=== PATIENT | female | born 1990 | race Caucasian/White ===

== ENCOUNTER 2017-04-27 18:10 | Emergency (ER) | payer SELFPAY ==
[2017-04-27 18:15] VITALS: BP 152/78; BMI 40.7
--- NOTE | 2017-04-27 18:45 | DR.GENAD ---
HPI - PCP Primary Care Physician: abimbola - HPI Comment HPI Comment: GETTING WORSE.NO FEVER. GLANDS SWOLLEN AND PAINFUL ON THE RIGHT ANTERIOR CERVICAL AREA. HAVING DYSPHAGIA WELL. - Complaint/Symptoms Chief Complaint Doctors Comments: SORE THROAT TIMES 2 DAYS. Chief Complaint:: thinks she has strep throat Self Treatment fo Chief Complaint: pt took tylenol cold last taken this morning - Nurses notes reviewed Nurses Notes Review: Yes - Source History Provided: Patient - Mode of Arrival Mode of Arrival: Ambulatory - Timing Onset of Chief Complaint: 04/25/17 Came on: Suddenly - Duration Duration: Constant Duration: Days - Severity Severity: Moderate PMH - PMH Past Medical History: Yes Past Medical History: Asthma, Hypertension Past Surgical History: No - Family History History of Family Medical Conditions: Yes Family Medical History: Hypertension - Social History Does patient currently use any type of tobacco product: Yes Have you used tobacco products in the last 12 months: Yes Type of Tobacco Use: Cigarettes Does any household member use tobacco: No Alcohol Use: None Do you use any recreational Drugs:: No Lives With: Family Lives Where: Home - infectious screening In the last 2 months have you had wt loss of >10#?: NO Have you had fever, night sweats or hemotysis?: No Have you traveled outside the country in the last 6 months?: No Isolation: Standard ROS - Review of Systems Constitutional: Weakness, Fatigue. negative: Chills, Fever Eyes: No Symptoms Reported. negative: Eye Pain, Discharge ENTM: No Symptoms Reported, Nose Discharge, Nose Congestion, Throat Pain. negative: Ear Pain Respiratoy: Productive Cough. negative: Short of Breath, Wheezing, Hemoptysis Cardiovascular: No Symptoms Reported Gastrointestinal/Abdominal: No Symptoms Reported Genitourinary: No Symptoms Reported Neurological: No Symptoms Reported Musculoskeletal: No Symptoms Reported Integumentary: No Symptoms Reported Hematologic/Lymphatic: Easy Bruising Endocrine: No Symptoms Reported All Other Systems: Reviewed and Negative PE - Vital Signs Vitals: Temperature 98.7 F Pulse Rate 91 Respiratory Rate 16 Blood Pressure 152/78 O2 Sat by Pulse Oximetry 98 - General Limitations: No Limitations General Appearance: Alert - Head Head Exam: Normal Inspection - Eyes Eye exam: Normal Appearance - ENT ENT Exam: Normal External Ear Exam External Ear Exam: Normal External Inspection TM/Canal Exam: Bilateral Normal Nose Exam: Normal Nose Exam Mouth Exam: Normal Inspection - Chest Chest Inspection: Symmetric Chest Wall Rise - Respiratory Respiratory Exam: Normal Lung Sounds Bilat Respiratory Exam: Bilateral Clear to Auscultation - Cardiovascular Cardiovascular Exam: Regular Rate, Normal Rhythm - Abdominal Exam Abdominal Exam: Normal Bowel Sounds, Soft. negative: Tenderness - Extremities Extremities Exam: Normal Inspection - Back Back Exam: Normal Inspection - Neurologic Neurological Exam: Alert, Oriented X3 - Psychiatric Psychiatric Exam: Normal Affect, Normal Mood - Skin Skin Exam: Normal Color MDM - Differential Diagnosis Differential Diagnosis: STREP PHARYNGITIS, CERVICAL ADENITIS, MONO Course - Treatment Treatment: SEE ORDERS. - Education/Counseling Education/Counseling: Patient, Education Educated On: Diagnosis, Needs for Follow Up ROR - Labs Reviewed Laboratory Results Reviewed?: Yes Laboratory: Monoscreen Negative (NEGATIVE) 04/27/17 19:15 Streptococcus Screen Negative (NEGATIVE) 04/27/17 18:42 - Diagnosis Discharge Problem: Sore throat, Cervical adenitis - Discharge Plan Disposition: 01 HOME, SELF-CARE Condition: Stable Prescriptions: Acetaminophen with Codeine [Tylenol/Codeine #3 300-30 mg] 1 tab PO Q4-6H PRN # 15 tab PRN Reason: Pain Amoxicillin [Amoxil 875 mg] 875 mg PO Q12H #20 tab - Follow ups/Referrals Follow ups/Referrals: Sergio Morrison [Primary Care Provider] - 3 days - Instructions Instructions: Sore Throat, [id number], Lymphadenopathy Additional Instructions: RETURN TO ED IF WORSE.
[2017-04-27] MEDS ORDERED: TYLENOL #3 TAB (W/CODEINE) PO ONE ×2 (19:59→20:05)
[2017-04-27] MEDS ORDERED: AMOXIL CAP 500 MG PO ONE ×2 (19:59→20:05)
[2017-04-27 20:00] LABS: MONOTEST NEGATIVE (NEGATIVE)
== END 2017-04-27 20:07 | disposition home or self-care (01) ==
LOC: ER 18:25
DX: J02.9 Acute pharyngitis, unspecified (principal); I88.8 Other nonspecific lymphadenitis
CPT/HCPCS: 86308; 87070; 87880; 99282

== ENCOUNTER 2018-02-21 20:43 | Emergency (ER) | payer SELFPAY ==
[2018-02-21] MEDS ORDERED: ASPIRIN 81 MG CHEWTAB ONE (20:55)
[2018-02-21 20:56] VITALS: BMI 49.8
[2018-02-21] MEDS ORDERED: ASPIRIN 81 MG CHEWTAB PO ONE (20:57)
[2018-02-21] MEDS ORDERED: ASPIRIN PO SCH (21:00)
[2018-02-21] MEDS ORDERED: NITROSTAT SL ONE (21:05)
[2018-02-21] MEDS: NITROSTAT SL PRN ×2 (21:05→21:15)
--- NOTE | 2018-02-21 21:06 | DR.CP ---
HPI - Time Seen Time seen: 21:00 - PCP Primary Care Physician: NFD - Complaint Chief Complaint Doctor Comments: Patient presents to the ED with complaint of sharp left chest lyudmila radiating to neck and left arm,shoulder. Pain 10/10, she admits to being diaphoretic. Denies prior history of chest pain. Chief Complaint:: "I WAS AT MY [place] IN [place] AND MY CHEST STARTED HURTING. STABBING PAINS IN MY LEFT CHEST AND LEFT NECK ,SHOULDER , ARM. I HAVE HAD HEART BURN WHETHER I EAT OR NOT PROBABLY THE LAST 3 MONTHS REALLY BAD. THIS HAS HAPPENED BEFORE." CHEST PAIN O/S 3 HRS AGO. SHORTNESS OF BREATH, WHEN I TAKE A BREATH IT FEELS LIKE SOMETHING IS SITTING ON MY CHEST. - Source History Provided: Patient - Mode of Arrival Mode of Arrival: Ambulatory - Timing Onset of Chief Complaint: 02/21/18 - Location Chest Pain Radiation Location: Left Jaw, Left Arm, Left Shoulder - Associated Signs and Symptoms Associated Signs and Symptoms: Shortness of Breath PMH - PMH Past Medical History: Yes Past Medical History: Asthma, Hypertension Past Surgical History: No - Family History History of Family Medical Conditions: Yes Family Medical History: Hypertension - Social History Type of Tobacco Use: Cigarettes Alcohol Use: None Do you use any recreational Drugs:: No Lives With: Significant Other Lives Where: Home - infectious screening Have you traveled outside the country in the last 6 months?: No Isolation: Standard ROS - Review of Systems Constitutional: Diaphoresis Eyes: No Symptoms Reported ENTM: No Symptoms Reported Respiratoy: No Symptoms Reported Cardiovascular: No Symptoms Reported Gastrointestinal/Abdominal: No Symptoms Reported Genitourinary: No Symptoms Reported Neurological: No Symptoms Reported Musculoskeletal: No Symptoms Reported Integumentary: No Symptoms Reported Hematologic/Lymphatic: No Symptoms Reported Endocrine: No Symptoms Reported Psychiatric: No Symptoms Reported All Other Systems: Reviewed and Negative PE - Vitals Vitals: Temperature 97.8 F Pulse Rate [Apical] 77 Pulse Rate 90 Respiratory Rate 20 Blood Pressure [Left Arm] 130/69 Blood Pressure 138/81 O2 Sat by Pulse Oximetry 99 - General Limitations: No Limitations General Appearance: Alert, In No Apparent Distress - Head Head Exam: Normal Inspection, Atraumatic - Eyes Eye exam: Normal Appearance, PERRL, EOMI - ENT ENT Exam: Normal Exam - Chest Chest Inspection: Normal Inspection, Symmetric Chest Wall Rise - Respiratory Respiratory Exam: Normal Lung Sounds Bilat Respiratory Exam: Bilateral Clear to Auscultation - Cardiovascular Cardiovascular Exam: Regular Rate, Normal Rhythm Pulse: Normal, Radial Edema: Normal - Abdominal Exam Abdominal Exam: Normal Inspection, Normal Bowel Sounds Abdominal Tenderness: negative: RUQ, RLQ, LUQ, LLQ, Epigastrium, Suprapubic, Diffuse, Mild, Moderate, Severe, Other - Extremities Extremities Exam: Normal Inspection, Full ROM - Back Back Exam: Normal Inspection, Full ROM - Neurologic Neurological Exam: Alert, Oriented X3, CN II-XII Intact - Psychiatric Psychiatric Exam: Normal Affect, Normal Mood - Skin Skin Exam: Warm, Dry, Intact Course - Consultation Called: 23:57 (Dr Coronel will f/u in office ) ROR - Labs Reviewed Result Diagrams: 02/21/18 21:00 02/21/18 21:00 Laboratory: WBC 17.1 X10^3/uL (3.6-10.0) H 02/21/18 21:00 RBC 4.69 X10^6/uL (3.5-5.4) 02/21/18 21:00 Hgb 12.4 g/dL (12.0-16.0) 02/21/18 21:00 Hct 36.6 % (36.0-47.0) 02/21/18 21:00 MCV 78.2 fL (80.0-100.0) L 02/21/18 21:00 MCH 26.5 pg (27.0-34.0) L 02/21/18 21:00 MCHC 33.9 g/dL (33.0-35.0) 02/21/18 21:00 RDW 17.7 % (11.6-16.5) H 02/21/18 21:00 Plt Count 305 X10^3/uL (150.0-450.0) 02/21/18 21:00 Plt Count Comment Adequate (ADEQUATE) 02/21/18 21:00 MPV 10.1 fL (7.4-11.0) 02/21/18 21:00 Neut % (Auto) 66.7 % (42.0-75.0) 02/21/18 21:00 Lymph % (Auto) 25.1 % (21.0-51.0) 02/21/18 21:00 [place] % (Auto) 4.9 % (0.0-13.0) 02/21/18 21:00 Eos % (Auto) 1.3 % (0.9-2.9) 02/21/18 21:00 Baso % (Auto) 2.0 % (0.2-1.0) H 02/21/18 21:00 Neut # (Auto) 11.4 x10^3/uL (2.2-4.8) H 02/21/18 21:00 Lymph # (Auto) 4.3 X10^3/uL (1.3-2.9) H 02/21/18 21:00 [place] # (Auto) 0.8 x10^3/uL (0.3-0.8) 02/21/18 21:00 Eos # (Auto) 0.2 x10^3/uL (0.0-0.2) 02/21/18 21:00 Baso # (Auto) 0.3 X10^3/uL (0.0-0.1) H 02/21/18 21:00 Absolute Nucleated RBC 0.0 /100WBC 02/21/18 21:00 Total Counted 100 02/21/18 21:00 Neutrophils % (Manual) 70 % (39-76) 02/21/18 21:00 Lymphocytes % (Manual) 28 % (13-43) 02/21/18 21:00 Monocytes % (Manual) 2 % (4-9) L 02/21/18 21:00 Plt Morphology Comment Normal (NORMAL) 02/21/18 21:00 RBC Morphology Normal (NORMAL) 02/21/18 21:00 INR Target Range - 02/21/18 21:00 INR 1.03 (0.8-1.3) 02/21/18 21:00 APTT 36.1 SECONDS (22.9-36.5) 02/21/18 21:00 PTT Comment - 02/21/18 21:00 Sodium 139 mmol/L (136-145) 02/21/18 21:00 Corrected Sodium TNP 02/21/18 21:00 Potassium 4.1 mmol/L (3.5-5.1) 02/21/18 21:00 Chloride 106 mmol/L (98-107) 02/21/18 21:00 Carbon Dioxide 23.5 mmol/L (21-32) 02/21/18 21:00 BUN 10 mg/dL (7-18) 02/21/18 21:00 Creatinine 0.66 mg/dL (0.55-1.02) 02/21/18 21:00 Est GFR (MDRD) Af Amer > 60 (>60) 02/21/18 21:00 Est GFR (MDRD) Non-Af > 60 (>60) 02/21/18 21:00 Glucose 99 mg/dL (65-99) 02/21/18 21:00 Calcium 7.5 mg/dL (8.5-10.1) L 02/21/18 21:00 Corrected Calcium 8.1 mg/dL (8.5-10.1) L 02/21/18 21:00 Magnesium 1.9 mg/dL (1.7-2.9) 02/21/18 21:00 Total Bilirubin 0.20 mg/dL (0.2-1.0) 02/21/18 21:00 AST 17 Units/L (15-37) 02/21/18 21:00 ALT 22 Units/L (12-78) 02/21/18 21:00 Alkaline Phosphatase 102 Units/L (46-116) 02/21/18 21:00 Creatine Kinase 117 Units/L (26-192) 02/21/18 21:00 CK-MB (CK-2) < 1.0 ng/mL (0-4.0) 02/21/18 21:00 CK/CKMB % Calc 0.9 % (<4) 02/21/18 21:00 Troponin I < 0.02 ng/mL (0-1.5) 02/21/18 21:00 Total Protein 7.4 g/dL (6.4-8.2) 02/21/18 21:00 Albumin 3.3 g/dL (3.4-5.0) L 02/21/18 21:00 Globulin 4.1 g/dL (2.5-4.5) 02/21/18 21:00 Albumin/Globulin Ratio 0.8 Ratio (1.1-2.1) L 02/21/18 21:00 Specimen Type Clean catch urine 02/21/18:52 Urine Color Yellow (YELLOW) 02/21/18 21:52 Urine Appearance Clear (CLEAR) 05/27/18 21:52 Urine pH 7.0 (5.0 - 8.0) 02/21/18 21:52 Ur Specific [place] 1.015 (1.000-1.030) 02/21/18 21:52 Urine Protein 1+ (NEGATIVE) 02/21/18 21:52 Urine Glucose (UA) Negative (NEGATIVE) 02/21/18 21:52 Urine Ketones 1+ (NEGATIVE) 02/21/18 21:52 Urine Occult Blood 1+ (NEGATIVE) 02/21/18 21:52 Urine Nitrite Negative (NEGATIVE) 02/21/18 21:52 Urine Bilirubin Negative (NEGATIVE) 02/21/18 21:52 Urine Urobilinogen 1+ (NORMAL) 02/21/18 21:52 Ur Leukocyte Esterase 1+ (NEGATIVE) 02/21/18 21:52 Urine RBC 3-5 /HPF (NONE SEEN) 02/21/18 21:52 Urine WBC 0-2 /HPF (NONE SEEN) 02/21/18 21:52 Ur Squamous Epith Cells Few /HPF (NEGATIVE) 02/21/18 21:52 Urine Bacteria Negative /HPF (NEGATIVE) 02/21/18 21:52 Ur Culture Indicated? No/not indicated 02/21/18 21:52 Urine Opiates Screen Negative (NEG=<300) 02/21/18 21:52 Urine Methadone Screen Negative (NEG=<300) 02/21/18 21:52 Ur Barbiturates Screen Negative (NEG=<200) 02/21/18 21:52 Ur Phencyclidine Scrn Negative (NEG=<25) 02/21/18 21:52 Ur Amphetamines Screen Negative (NEG=<1000) 02/21/18 21:52 U Benzodiazepines Scrn Negative (NEG=<200) 02/21/18 21:52 Urine Cocaine Screen Negative (NEG=<300) 02/21/18 21:52 U Marijuana (THC) Screen Negative (NEG=<50) 02/21/18 21:52 H. pylori IgG Antibody Positive (NEGATIVE) A 02/21/18 21:00 - XRAY XRAY Interpreted by: Radiologist (Chest: no acute chest process) - Diagnosis Discharge Problem: Helicobacter pylori gastritis Chest pain Qualifiers: Chest pain type: unspecified Qualified Code(s): R07.9 - Chest pain, unspecified - Discharge Plan Condition: Stable - Follow ups/Referrals Follow ups/Referrals: NFD,None [Primary Care Provider] - 3 days - Instructions
[2018-02-21 21:12] LABS: BASOPHILS # (AUTO) 0.3 X10^3/uL (0.0-0.1); EOSINOPHILS # (AUTO) 0.2 x10^3/uL (0.0-0.2); EOSINOPHILS % (AUTO) 1.3 % (0.9-2.9); HEMATOCRIT 36.6 % (36.0-47.0); HEMOGLOBIN 12.4 g/dL (12.0-16.0); LYMPHOCYTES # (AUTO) 4.3 X10^3/uL (1.3-2.9); LYMPHOCYTES % (AUTO) 25.1 % (21.0-51.0); MEAN CORPUSCULAR HEMOGLOBIN 26.5 pg (27.0-34.0); MEAN CORPUSCULAR HGB CONC 33.9 g/dL (33.0-35.0); MEAN CORPUSCULAR VOLUME 78.2 fL (80.0-100.0); MEAN PLATELET VOLUME 10.1 fL (7.4-11.0); MONOCYTES # (AUTO) 0.8 x10^3/uL (0.3-0.8); MONOCYTES % (AUTO) 4.9 % (0.0-13.0); NEUTROPHILS # (AUTO) 11.4 x10^3/uL (2.2-4.8); NEUTROPHILS % (AUTO) 66.7 % (42.0-75.0); PLATELET COUNT 305 X10^3/uL (150.0-450.0); RED BLOOD COUNT 4.69 X10^6/uL (3.5-5.4); RED CELL DISTRIBUTION WIDTH 17.7 % (11.6-16.5); WHITE BLOOD COUNT 17.1 X10^3/uL (3.6-10.0)
[2018-02-21 21:24] LABS: BLOOD UREA NITROGEN 10 mg/dL (7-18); CALCIUM 7.5 mg/dL (8.5-10.1); CARBON DIOXIDE 23.5 mmol/L (21-32); CHLORIDE 106 mmol/L (98-107); CREATININE 0.66 mg/dL (0.55-1.02); SODIUM 139 mmol/L (136-145); TROPONIN I < 0.02 ng/mL (0-1.5); eGFR BLACK RACES > 60 (>60); eGFR NON BLACK RACES > 60 (>60)
--- NOTE | 2018-02-21 21:24 | RAD ---
Chest, AP portable Indication: Chest pain Comparison: None Findings: Cardiac silhouette is unremarkable. The lungs are grossly clear without focal infiltrates o r pleural effusion. Impression: No acute chest process. Reported By:
[2018-02-21 21:28] LABS: ALANINE AMINOTRANSFERASE 22 Units/L (12-78); ALBUMIN 3.3 g/dL (3.4-5.0); ALKALINE PHOSPHATASE 102 Units/L (46-116); COR CA(FOR HYPOALB) 8.1 mg/dL (8.5-10.1); CREATINE KINASE 117 Units/L (26-192); CREATINE KINASE MB < 1.0 ng/mL (0-4.0); MAGNESIUM 1.9 mg/dL (1.7-2.9); TOTAL PROTEIN 7.4 g/dL (6.4-8.2)
[2018-02-21 21:29] LABS: PLATELET MORPHOLOGY COMMENT NORMAL (NORMAL)
[2018-02-21 21:30] LABS: ASPARTATE AMINO TRANSFERASE 17 Units/L (15-37)
[2018-02-21 21:32] LABS: CKMB % 0.9 % (<4)
[2018-02-21 22:21] LABS: BILIRUBIN,URINE NEGATIVE (NEGATIVE); BLOOD/HEMOGLOBIN,URINE 1+ (NEGATIVE); GLUCOSE, URINE NEGATIVE (NEGATIVE); KETONES,URINE 1+ (NEGATIVE); LEUKOCYTE ESTERASE ,URINE 1+ (NEGATIVE); NITRITES,URINE NEGATIVE (NEGATIVE); PROTEIN,URINE 1+ (NEGATIVE); UROBILINOGEN,URINE 1+ (NORMAL)
[2018-02-21 22:28] LABS: APPEARANCE,URINE CLEAR (CLEAR); COLOR,URINE YELLOW (YELLOW)
[2018-02-21 22:29] LABS: BACTERIA,URINE NEGATIVE /HPF (NEGATIVE); SQUAMOUS EPITHELIAL CELL,UR FEW /HPF (NEGATIVE)
[2018-02-22] MEDS ORDERED: TORADOL 30 MG VIAL IVP ONE
[2018-02-22] MEDS ORDERED: TORADOL 30 MG VIAL ONE (00:01)
[2018-02-22 00:17] VITALS: BP 147/79
== END 2018-02-22 00:10 | disposition home or self-care (01) ==
LOC: ER 20:43
DX: R07.89 Other chest pain (principal); B96.81 Helicobacter pylori [H. pylori] as the cause of diseases classified elsewhere
CPT/HCPCS: 36415; 71045; 80053; 80307; 81001; 82550; 82553; 83735; 84484; 85025; 85610; 85730; 86677; 93005; 93010; 96365; 96374; 99283; A4222; G0434; J1885